=== PATIENT | female | born 1935 | race Two or more races ===

== ENCOUNTER 2019-01-29 10:20 | Emergency (ER) | payer OTHER ==
[~2019-01-29] VITALS: Ht 149.9 cm; Wt 56.2 kg
[2019-01-29 10:31] VITALS: BP 160/34
[2019-01-29] MEDS ORDERED: ACETAMINOPHEN 325 MG TAB PO ONE (12:15)
== END 2019-01-29 12:15 | disposition home or self-care (01) ==
LOC: ER 10:20
DX: S00.83XA Contusion of other part of head, initial encounter (principal); S40.021A Contusion of right upper arm, initial encounter; W01.0XXA Fall on same level from slipping, tripping and stumbling without subsequent striking against object, initial encounter; Y93.89 Activity, other specified; Y92.89 Other specified places as the place of occurrence of the external cause; Y99.8 Other external cause status
CPT/HCPCS: 70450